=== PATIENT | female | born 1990 | race Caucasian/White ===

== ENCOUNTER 2021-07-21 03:40 | Inpatient (IN) | payer OTHER, SELFPAY ==
[2021-07-21] VITALS (36 sets, daily range): BP systolic 94–141; BP diastolic 57–93; PULSE 53–129; RESP 16–20; TEMP 36.7–37.2; O2SAT 99; BMI 33.1
--- NOTE | 2021-07-21 04:22 | LDADM ---
This patient, August, was admitted to Labor/Delivery/Recovery 105 on 07/21/21 at 03:40. Plans for labor, pain management and were discussed with patient. Patient/family oriented to hospital policies and general routines including ID bracelet, bed and alarms, visiting hours, pain management, procedures, bathroom and other care routines, personal items, smoking policy, room service/diet and guest tray routines, security routines, and visiting hours. Patient/Family are encouraged to report perceived risks to care and to ask questions if they do not understand what they are told or what they should do. See OBIX for further documentation.
[2021-07-21] MEDS: DEXTROSE 5%/LACTATED RINGERS 1,000 ML 125 ML IV CONT (04:28)
[2021-07-21 05:09] LABS: Basophils Percent Auto 0.2 % (0.2-1.2); Eosinophils Absolute Auto 0.1 K/mm3 (0-0.3); Eosinophils Percent Auto 0.5 % (0-4.4); Hematocrit 37.4 % (37.0-47.0); Hemoglobin 13.1 g/dL (12.0-15.0); Immature Granulocyte Absolute 0.08 K/mm3 (0.00-0.031); Immature Granulocyte Percent A 0.6 % (0-0.5); Lymphocytes Absolute Auto 3.37 K/mm3 (0.9-3.2); Lymphocytes Percent Auto 27.3 % (18.3-44.2); Mean Corpuscular Hemoglobin 34.7 pg (26-34); Mean Corpuscular Volume 98.9 fl (80-100); Mean Platelet Volume 12.5 fl (7.4-10.4); Monocytes Absolute Auto 0.8 K/mm3 (0.1-0.6); Monocytes Percent Auto 6.6 % (2.6-8.5); Neutrophils Percent Auto 64.8 % (45.5-73.1); Platelet Count Result 156 k/mm3 (150-375); Red Blood Count 3.78 M/mm3 (4.2-5.4); Red Cell Distribution Width 13.2 % (11.5-14.5); White Blood Count 12.3 K/mm3 (4.5-10.0)
--- NOTE | 2021-07-21 07:24 | PM.IMHP ---
H&P: HPI History of Present Illness Date/Time: 07/21/21 07:24 31-year-old 1 para 0 whose last menstrual was 10/06/2020, EDC is 07/15/2021, presents at 41 weeks gestation active labor. Her has been uncomplicated. She is negative for group B strep Chief Complaint: term in active labor Review of Systems Review of Systems: All systems reviewed & are unremarkable except as noted in HPI and below PMFSH Family History Family History Grandparent Pacemaker Diabetes mellitus Father Hypertension Mother Diabetes mellitus Sibling Diabetes mellitus Social History Social History Smoking status: Never smoker Substance use: never Spiritual care concerns: No Meds Home Medications and Allergies Allergies Allergy/AdvReac Type Severity Reaction Status Date / Time No Known Allergies Allergy Verified 06/28/21 13:58 Vital Signs Vital Signs - 24 hr 07/21/21 04:00 07/21/21 04:27 07/21/21 04:31 Temperature 98.7 F Pulse Rate 64 72 Respiratory Rate Blood Pressure 134/84 125/82 07/21/21 04:46 07/21/21 05:16 07/21/21 05:31 Temperature Pulse Rate 71 97 53 L Respiratory Rate Blood Pressure 125/73 112/77 127/81 07/21/21 05:46 07/21/21 06:01 07/21/21 06:16 Temperature 98.3 F Pulse Rate 65 53 L 55 L Respiratory Rate 20 Blood Pressure 126/90 136/91 H 124/80 07/21/21 06:33 Temperature Pulse Rate 78 Respiratory Rate Blood Pressure 116/73 Exam Const: General: no acute distress Eyes: General: appearance normal, both eyes and all related structures Neck: Neck: supple and no JVD Thyroid: thyroid normal Resp: Effort & Inspection: normal respiratory effort Auscultation: clear to auscultation bilaterally Cardio: Rate: regular rate Rhythm: regular rhythm GI: Inspection: non-distended GI Palp: Yes Soft to palpation, No Tenderness to palpation present (GI) and No Guarding due to palpation present (GI) Auscultation: normal bowel sounds : External Female Exam: normal external appearance Speculum Exam - Vagina: normal appearance of the vagina Speculum Exam - Cervix: normal appearance of the cervix ( cervix is 6 / 100%/ -1 AROM clear. FHTs now reassuring after sugar load) Skin: General skin exam: no rashes or lesions noted Extrem: General: normal to inspection and no edema Psych: Mental Status: mental status grossly normal Affect: normal affect H&P: Results Labs Labs: Short CBC 07/21/21 Range/Units 04:18 WBC 12.3 H (4.5-10.0) K/mm3 Hgb 13.1 (12.0-15.0) g/dL Hct 37.4 (37.0-47.0) % Plt Count 156 (150-375) k/mm3 Assessment and Plan Additional Plan impression: Term in active labor Plan: Spontaneous vaginal delivery is expected
[2021-07-21] MEDS: LACTATED RINGERS 1,000 ML 125 ML IV CONT (07:45)
[2021-07-21 09:28] LABS: Rapid Plasma Reagin Non-Reactive (NonReactive)
[2021-07-21] MEDS: OXYTOCIN 30 UNITS/NS 500 ML 30 UNITS/500 ML BAG 999 UNITS IVPB (13:40)
--- NOTE | 2021-07-21 13:43 | PM.OBPRVD ---
OB - Delivery Note Procedure Delivery date: 07/21/21 Induction method: None Delivery monitor: External FHT Route of delivery: Prior to decision for section, [facility] labor guidelines were considered and discussed with the patient and staff. Decision made to proceed with the section.: No Episiotomy description: None Laceration Description: None Specimen: No Quantitative Blood Loss (ml): 59 Anesthesia type: None Disposition: floor Baby Date of : 07/21/21 Time of : 13:36 Weeks of gestation at delivery: 40 gender: Female presentation: vertex position: Right Occiput Anterior Placenta delivery description: Spontaneous Cord Vessel Description: 3 Vessels, Nuchal Cord and Loose score one minute: 8 score five minutes: 9
[2021-07-21] MEDS: LIDOCAINE HCL 1% PF 30 ML VIAL (13:50)
[2021-07-21] MEDS: OXYTOCIN 30 UNITS/NS 500 ML 30 UNITS/500 ML BAG 125 UNITS IV CONT (14:20)
[2021-07-21] MEDS: BENZOCAINE 20% AER SPR (*SP) 56 GM CAN 1 SPRAY TOPICAL (16:04)
[2021-07-21] MEDS: WITCH HAZEL 40 PADS 1 PAD TOPICAL (16:04)
[2021-07-21] MEDS: IBUPROFEN 600 MG TABLET PO (19:18)
[2021-07-22] VITALS: BP 102/63; PULSE 78; RESP 16; TEMP 36.8; O2SAT 100
[2021-07-22 04:00] VITALS: BP 110/68; PULSE 76; RESP 16; TEMP 36.9; O2SAT 99
[2021-07-22 06:12] LABS: Hematocrit 32.5 % (37.0-47.0); Hemoglobin 11.4 g/dL (12.0-15.0)
[2021-07-22 07:15] VITALS: BP 105/73; PULSE 79; RESP 18; TEMP 36.8; O2SAT 98
--- NOTE | 2021-07-22 07:34 | PM.OBPNVD ---
OB - PN: Subj Subjective Date/time seen: 07/22/21 07:34 Patient comments: no complaints and pain well controlled baby status: doing well and nursing well OB - PN: Obj Data Labs CBC & Chem 7: 07/22/21 04:01 Labs: Laboratory Results - last 24 hr 07/21/21 07/21/21 07/22/21 04:18 11:41 04:01 Hgb 11.4 L Hct 32.5 L RPR Non-reactive Blood Type A Positive Antibody Screen Negative OB - PN A/P Plan day: 1 Plan: routine care Time Spent With Patient Time: Total time spent is greater than 50% in coordination of care (as documented) at patient's floor/unit and/or counseling patient: Time with patient: less than 15 minutes Review of Systems Review of Systems: All systems reviewed & are unremarkable except as noted in HPI and below Exam Const: General: no acute distress Eyes: General: appearance normal, both eyes and all related structures Neck: Neck: supple and no JVD Thyroid: thyroid normal Resp: Effort & Inspection: normal respiratory effort Auscultation: clear to auscultation bilaterally Cardio: Rate: regular rate Rhythm: regular rhythm GI: Inspection: non-distended GI Palp: Yes Soft to palpation, No Tenderness to palpation present (GI) and No Guarding due to palpation present (GI) Auscultation: normal bowel sounds : General: Yes bladder normal to palpation External Female Exam: normal external appearance Speculum Exam - Vagina: normal vaginal discharge and No vaginal bleeding Speculum Exam - Cervix: nontender Bimanual exam- vagina & uterus: bladder normal to palpation and No Cervical tenderness present OB/external & speculum: No vaginal bleeding Skin: General skin exam: no rashes or lesions noted Extrem: General: normal to inspection and no edema Psych: Mental Status: mental status grossly normal Affect: normal affect
[2021-07-22 08:00] VITALS: PULSE 79; RESP 18; O2SAT 98
[2021-07-22] MEDS: DOCUSATE SODIUM 100 MG CAPSULE PO (09:42)
[2021-07-22] MEDS: IBUPROFEN 600 MG TABLET PO (09:43)
[2021-07-22] MEDS: MULTIVIT/MIN/PREN/FOL AC/IRON TABLET 1 TAB PO (09:43)
[2021-07-22 12:29] VITALS: BP 101/59; PULSE 88; RESP 16; TEMP 37.2; O2SAT 98
[2021-07-22 19:25] VITALS: BP 106/86; PULSE 68; RESP 16; TEMP 37
--- NOTE | 2021-07-23 10:26 | PM.DS ---
DS: Admitting Diagnosis Discharge Date 07/22/21 Admitting Diagnosis Term in active labor DS: Discharge Diagnosis Discharge Diagnosis (1) Active labor at term: Status: Acute DS: Summary Hospital Course Hospital Course: Patient was admitted in active labor. She underwent spontaneous vaginal delivery which was unremarkable. She her course was unremarkable. She remained afebrile. She was voiding without difficulty passing gas eating a regular diet and general without complaints. The baby was transferred and therefore she asked to be transferred for home Time Spent with Patient Time attestation: Total time spent providing and/or coordinating discharge services: Exam Const: General: no acute distress Eyes: General: appearance normal, both eyes and all related structures Neck: Neck: supple and no JVD Thyroid: thyroid normal Resp: Effort & Inspection: normal respiratory effort Auscultation: clear to auscultation bilaterally Cardio: Rate: regular rate Rhythm: regular rhythm GI: Inspection: non-distended GI Palp: Yes Soft to palpation, No Tenderness to palpation present (GI) and No Guarding due to palpation present (GI) Auscultation: normal bowel sounds : General: Yes bladder normal to palpation External Female Exam: normal external appearance Speculum Exam - Vagina: normal vaginal discharge and No vaginal bleeding Speculum Exam - Cervix: nontender Bimanual exam- vagina & uterus: bladder normal to palpation and No Cervical tenderness present OB/external & speculum: No vaginal bleeding Skin: General skin exam: no rashes or lesions noted Extrem: General: normal to inspection and no edema Psych: Mental Status: mental status grossly normal Affect: normal affect Discharge Plan Discharge Attending physician on discharge: Pablo Pruitt Discharging Clinician: Pablo Pruitt Patient Disposition: Home, Self-Care Activity: may shower and pelvic rest Diet: heart healthy Discharge Instructions: Education: Mom and Baby Guide Given to: Mother Follow-Up: Call your delivering provider's office for an appointment to be seen in: 6 Weeks Mom and baby should come to the [facility] for the follow-up appointment. Appointment Date/Time: July 24, 2021 at 11:00 am What to expect at your follow-up visit: Blood Pressure Check Call [phone] if you are unable to keep your appointment time. BREAST CARE: * Wear a snug supportive bra. * For engorgement discomfort: Breast Feeding: * Apply warm moist washcloths * Express milk as needed to relieve engorgement * Wear loose clothing * For sore nipples: * Identify correct latch-on * Apply warm moist washcloths before and after nursing * Air dry nipples after nursing * May apply Lansinoh cream to nipples EPISIOTOMY/PERINEAL CARE: * Until bleeding stops, use your meron bottle after urinating * Change your pad frequently throughout the day * You may take sitz baths several times a day (fill your bathtub with warm water and soak for 20 minutes.) Do NOT bathe in the water * No tub baths until seen by your physician - You may shower ACTIVITY: * Rest as much as possible. * Do not exercise or lift anything heavier than your baby (such as laundry or other children.) * Avoid stairs or driving as much as possible. * Do not put anything into the vagina. No douching, tampons, or sexual activity until seen by physician. NOTIFY PHYSICIAN IF YOU HAVE ANY QUESTIONS OR IF ANY OF THE FOLLOWING SYMPTOMS OCCUR: * If your episiotomy or incision becomes red, swollen, or more painful than what you have experienced in the hospital. * If your vaginal bleeding becomes foul smelling. * If your vaginal bleeding becomes more heavy than a period or if your bleeding changes from pink to bright red. However, you may pass an occasional walnut-sized clot once or twice for the first week postpartu
== END 2021-07-22 23:36 | disposition home or self-care (01) | DRG 807 ==
LOC: ANHOB2 07-22 22:38 → ANHLDR 07-23 10:49 → ANHOB2 07-23 10:49
PROVIDERS: Admitting Provider Obstetrics & Gynecology; PCP Family Medicine; Visit Provider Obstetrics & Gynecology
DX: O69.81X0 Labor and delivery complicated by cord around neck, without compression, not applicable or unspecified (principal); Z37.0 Single live birth; Z3A.41 41 weeks gestation of pregnancy; O36.8330 Maternal care for abnormalities of the fetal heart rate or rhythm, third trimester, not applicable or unspecified; O70.0 First degree perineal laceration during delivery
CPT/HCPCS: 36415; 85014; 85018; 85025; 86592; 86850; 86900; 86901; A9270; J2590; J7120; J7121

== ENCOUNTER 2024-07-18 03:33 | Inpatient (IN) | payer OTHER, SELFPAY ==
[2024-07-18] VITALS (41 sets, daily range): BP systolic 79–130; BP diastolic 48–81; PULSE 75–99; RESP 16–20; TEMP 36.9–37.3; O2SAT 93–100; BMI 35.9
[2024-07-18 04:37] LABS: Basophils Percent Auto 0.2 % (0.2-1.2); Eosinophils Percent Auto 0.2 % (0-4.4); Hematocrit 35.9 % (37.0-47.0); Hemoglobin 12.5 g/dL (12.0-15.0); Immature Granulocyte Percent A 0.8 % (0-0.5); Lymphocytes Absolute Auto 2.67 K/mm3 (0.9-3.2); Mean Corpuscular HGB Conc 34.8 g/dl (32-36); Mean Corpuscular Hemoglobin 33.9 pg (26-34); Mean Corpuscular Volume 97.3 fl (80-100); Mean Platelet Volume 11.1 fl (7.4-10.4); Monocytes Absolute Auto 0.6 K/mm3 (0.1-0.6); Monocytes Percent Auto 5.2 % (2.6-8.5); Neutrophils Absolute Auto 8.7 K/mm3 (1.3-6.7); Neutrophils Percent Auto 71.6 % (45.5-73.1); Platelet Count Result 197 k/mm3 (150-375); Red Blood Count 3.69 M/mm3 (4.2-5.4); Red Cell Distribution Width 12.8 % (11.5-14.5); White Blood Count 12.1 K/mm3 (4.5-10.0)
[2024-07-18] MEDS: OXYTOCIN 10 UNITS/ML VIAL IM (04:49)
--- NOTE | 2024-07-18 04:52 | PM.IMHP ---
H&P: HPI History of Present Illness Date/Time: 07/18/24 04:52 Chief Complaint: Labor at term Narrative: 34-year-old female 2 para whose last menstrual was 10/05/2023, EDC is 07/09/2024, presents at 41 and 2 7th weeks gestation active labor. She negative for group B strep. Her was otherwise uncomplicated short of postdate . Review of Systems Review of Systems: All systems reviewed & are unremarkable except as noted in HPI and below PMFSH Family History Family History Grandparent Pacemaker Diabetes mellitus Father Hypertension Mother Diabetes mellitus Sibling Diabetes mellitus Social History Social History Smoking status: Never smoker Substance use: never Spiritual care concerns: No Meds Home Medications and Allergies Home Medications ?Medication ?Instructions ?Recorded ?Confirmed ?Type vit no.95-ferrous 1 tablet PO DAILY 07/01/24 07/01/24 History fumarate 28 mg-folic acid 800 mcg tablet () Allergies Allergy/AdvReac Type Severity Reaction Status Date / Time No Known Allergies Allergy Verified 07/01/24 13:09 Vital Signs Vital Signs - 24 hr 07/18/24 04:43 07/18/24 04:48 Pulse Oximetry 98 97 Exam Const: General: cooperative, healthy appearing and comfortable Nutritional Appearance: average body habitus Orientation/consciousness: oriented to person, oriented to place and oriented to time HENMT: Head: normal to inspection Resp: Effort & Inspection: normal respiratory effort Cardio: Rate: regular rate Rhythm: regular rhythm Heart sounds: S1 normal heart sound present and S2 normal heart sound present GI: Inspection: normal to inspection (Gravid soft uterus) : External Female Exam: normal external appearance Speculum Exam - Vagina: normal appearance of the vagina Speculum Exam - Cervix: normal appearance of the cervix (Cervix initially 6 quickly to the room. A round clear) H&P: Results Labs Labs: Short CBC 07/18/24 Range/Units 04:29 WBC 12.1 H (4.5-10.0) K/mm3 Hgb 12.5 (12.0-15.0) g/dL Hct 35.9 L (37.0-47.0) % Plt Count 197 (150-375) k/mm3 Assessment and Plan Assessment and plan (1) Active labor at term: Status: Acute Plan Imminent spontaneous vaginal delivery expected
--- NOTE | 2024-07-18 04:55 | PM.OBPRVD ---
OB - Vaginal Delivery Note Procedure Delivery date: 07/18/24 Induction method: None Delivery augmentation: Rupture of Membranes Delivery monitor: External FHT and External Uterine Route of delivery: Episiotomy description: None Laceration Description: None Specimen: No Quantitative Blood Loss (ml): 62 Anesthesia type: None Disposition: Floor Complications: No immediate complications Narrative: Patient was admitted in active labor at 41 and 2 7th weeks gestation she was actually scheduled for induction this a.m. she rapidly went from 6 to the complete artificial rupture membranes performed she pushed about 5 times delivered the head spontaneously in the SAI position. Nuchal cord checked noted be loose x1 rubor old occiput. Anterior posterior shoulder delivered spontaneously. Cord clamped x2 and cut patient placed in Trendelenburg. After inspecting the vagina no tears were noted. QBL was 62cc. All sponge, needle, instrument counts were correct. There were no immediate complications noted [place] Baby Date of : 07/18/24 Time of : 04:43 Gestational Age by Date: 41 gender: Male presentation: vertex position: Right Occiput Anterior Placenta delivery description: Spontaneous Cord Vessel Description: 3 Vessels, Nuchal Cord, Loose and Reduced score one minute: 8 score five minutes: 9
--- NOTE | 2024-07-18 04:57 | PM.DS ---
DS: Admitting Diagnosis Discharge Date 07/19/2024 Admitting Diagnosis Postdate DS: Discharge Diagnosis Discharge Diagnosis (1) Active labor at term: Status: Acute DS: Summary Hospital Course Reason for hospitalization: Patient was admitted in active labor early a.m. 07/18/2019 and underwent spontaneous vaginal delivery Hospital Course: Patient's hospital course unremarkable. She remained afebrile. She was up, voiding without difficulty, eating diet, ambulating, and generally without complaints. Time Spent with Patient Time attestation: Total time spent providing and/or coordinating discharge services: Exam Const: General: cooperative, healthy appearing and comfortable Nutritional Appearance: average body habitus Orientation/consciousness: oriented to person, oriented to place and oriented to time HENMT: Head: normal to inspection Resp: Effort & Inspection: normal respiratory effort Cardio: Rate: regular rate Rhythm: regular rhythm Heart sounds: S1 normal heart sound present and S2 normal heart sound present GI: Inspection: normal to inspection (Fundus firm below the umbilicus) DS: Data Data Completed and Pending Labs on day of discharge: Labs from last 24 hours 07/18/24 04:29 WBC 12.1 H RBC 3.69 L Hgb 12.5 Hct 35.9 L MCV 97.3 MCH 33.9 MCHC 34.8 RDW 12.8 Plt Count 197 MPV 11.1 H Immature Gran % (Auto) 0.8 H Neut % (Auto) 71.6 Lymph % (Auto) 22.0 [place] % (Auto) 5.2 Eos % (Auto) 0.2 Baso % (Auto) 0.2 Lymph # (Auto) 2.67 [place] # (Auto) 0.6 Eos # (Auto) 0.0 Baso # (Auto) 0.0 Abs Immat Gran (auto) 0.10 H Absolute Neuts (auto) 8.7 H Absolute Nucleated RBC 0.000 Nucleated RBC % 0.0 HIV 1&2 Ab/P24 Ag 4thGn Pending Discharge Plan Discharge Attending physician on discharge: Pablo Fairchild Discharging Clinician: Pablo Fairchild Patient Disposition: Home, Self-Care Activity: may shower, no straining and pelvic rest Diet: heart healthy Wound Care Instructions: follow printed instructions Patient Instructions: Antibiotic Form Patient Language: [place] Stand Alone Forms: General Discharge Information Follow-up/Referrals: Pablo Fairchild MD [Physician] - Discharge Medications: Continued PNV cmb#95-ferrous fumarate-FA [] 28 mg iron- 800 mcg tablet 1 tablet PO DAILY Date of admission: 07/18/24 03:33 Primary Care Provider: Letty,Dada Chambers Admitting Provider: Pablo Fairchild Attending physician on admission: Pablo Fairchild Condition: Stable
--- NOTE | 2024-07-18 05:05 | LDADM ---
This patient, Geni Antoine, was admitted to Labor/Delivery/Recovery 106 on 07/18/24 at 03:33. Plans for labor, pain management and were discussed with patient. Patient/family oriented to hospital policies and general routines including ID bracelet, bed and alarms, visiting hours, pain management, procedures, bathroom and other care routines, personal items, smoking policy, room service/diet and guest tray routines, infant security routines, and visiting hours. Patient/Family are encouraged to report perceived risks to care and to ask questions if they do not understand what they are told or what they should do. See OBIX for further documentation.
[2024-07-18 05:28] LABS: HIV 1/2 Ab P24 Ag Result Negative (Negative)
[2024-07-18] MEDS: OXYTOCIN 30 UNITS/NS 500 ML 30 UNITS/500 ML BAG 999 UNITS IV CONT (05:30)
[2024-07-18 05:59] LABS: Syphilis IgG/IgM Antibody Negative (Negative)
--- NOTE | 2024-07-18 07:27 | OBPPTRN ---
Patient transferred to post room #277 via wheelchair. Support person present. Oriented to unit, room, information board, rooming in, admission packet and security measures. Patient verbalizes understanding.
[2024-07-18] MEDS: DOCUSATE SODIUM 100 MG CAPSULE PO (09:35)
[2024-07-18] MEDS: MULTIVIT/MIN/PREN/FOL AC/IRON TABLET 1 TAB PO (09:35)
--- NOTE | 2024-07-18 10:15 | PC.NURSE ---
1015- Primary RN requested assistance for patient. She had mom place baby skin to skin. Baby was still skin to skin and very sleepy. We tried to elicit feeding cues but didn't give any effort. Mom needs a lot of help with positioning. She has short shanked meaty nipples. Her first baby wasn't able to latch so she pumped and bottle fed. Encouraged continued skin to skin and we will try again in 30 minutes. Reported to primary RN. 1050- Returned to patient room to see if baby had awakened to feed. Mom was trying to latch him in a laid back position. Baby was trying to latch but was arching his back. We repositioned to a cross cradle hold and he eagerly tried to latch. He appears to have a recessed chin and the breast slips out the bottom of his mouth a soon as he stops sucking. We switched to the right breast in cross cradle and after several attempts were able to get a good latch. latched to the [right] breast in [cross cradle] position. Infant [was] able to maintain an appropriate latch. Mother [declines] nipple pain/discomfort [throughout feeding]. Encouraged mother to keep infant awake and nursing at the breast for as long as he desires. Mother taught to listen for infant swallowing during feedings and to recognize a deep latch. Reviewed using the blue feeding sheet to record time and duration of feeding. Mother voiced understanding of the education shared, to call for assistance if the infant does not latch or if there is discomfort with . name/number on communication board. Reported to the Primary RN.?
--- NOTE | 2024-07-18 15:53 | PC.NURSE ---
On 07/18/24, the [facility] nursing manager, Natalie, provided care and completed [employer] documentation on this patient. I have reviewed the student's documentation and agree with the findings.
--- NOTE | 2024-07-18 18:56 | PC.NURSE ---
1520 Mother called out for assistance, she had baby skin to skin and baby was showing no feeding cues. Advised mother to keep skin to skin and RN would check back with her in 20-30 minutes. 1550 in room, mother latched baby to her left breast in cross cradle and baby would latch and took a few sucks for a few minutes. Reported to Primary RN. 1625 RN in room, mother used her manual hand pump per her choice and gave baby drops of colostrum that she had collected. Reported to Primary RN. 1730 Mother had baby skin to skin and he was showing feeding cues, she was going to see if baby would latch. She had sent her to go and get her double electric pump to use instead of her manual breast pump. Discussed possible supplementation of formula if needed, per mother with her last baby she did pump and bottle feed but really wanted to breast feed this time if baby would. Mother voiced understanding of information and will call if there is a request for assistance. Reported to the Primary RN.
[2024-07-18] MEDS: ACETAMINOPHEN 325 MG TABLET 650 MG PO (20:43)
[2024-07-19 00:15] VITALS: BP 98/69; PULSE 83; RESP 20; TEMP 36.5; O2SAT 100
[2024-07-19] MEDS: IBUPROFEN 600 MG TABLET PO (01:07)
[2024-07-19 05:37] LABS: Hematocrit 34.2 % (37.0-47.0); Hemoglobin 11.5 g/dL (12.0-15.0)
[2024-07-19 07:10] VITALS: BP 108/65; PULSE 90; RESP 16; TEMP 36.9; O2SAT 97
--- NOTE | 2024-07-19 07:47 | PM.OBPNVD ---
OB - PN: Subj Subjective Date/time seen: 07/19/24 07:47 Patient comments: no complaints, pain well controlled and tolerating diet Guy baby status: doing well OB - PN: Obj Data Labs 07/19/24 04:55 Labs: Laboratory Results - last 24 hr 07/19/24 04:55 Hgb 11.5 L Hct 34.2 L OB - PN A/P Time Spent With Patient Time: Total time spent is greater than 50% in coordination of care (as documented) at patient's floor/unit and/or counseling patient: Review of Systems Review of Systems: All systems reviewed & are unremarkable except as noted in HPI and below
[2024-07-19] MEDS: MULTIVIT/MIN/PREN/FOL AC/IRON TABLET 1 TAB PO (08:42)
[2024-07-19] MEDS: DOCUSATE SODIUM 100 MG CAPSULE PO (08:42)
[2024-07-19] MEDS: ACETAMINOPHEN 325 MG TABLET 650 MG PO (08:47)
--- NOTE | 2024-07-19 09:05 | PC.NURSE ---
Consulted with mother concerning needs and she shared her ability to independently latch infant optimally without pain, baby is currently latched optimally on her right breast in the football position. Mother is feeding appropriately for growth of and understands stimulating infant to eat if needed. Infant has had appropriate feedings in the last 24 hours meets the outcomes for weight, output, blood sugar and jaundice at this time. Reinforced understanding of milk production, transition of milk, signs of adequate intake, transition of stool, prevention/relief of engorgement, plugged ducts, mastitis, responsive watching for feeding cues, the different methods of stimulating infant to breastfeed 1-3 hours after the start of the last feeding, community resources, and when to call a provider using the resource of the feeding sheet along with the mom and baby guide. Mother voiced understanding of the information shared, is confident to continue effectively her infant at home, when to call for assistance, denies any additional assistance or education at this time. Reported to the Primary RN.
[2024-07-20 09:43] VITALS: BP 166/73; PULSE 95; RESP 20; TEMP 36.4; O2SAT 100
== END 2024-07-19 15:50 | disposition home or self-care (01) | DRG 807 ==
LOC: ANHLDR 05:00 → ANHOB2 07:30
PROVIDERS: Admitting Provider Obstetrics & Gynecology; PCP Family Medicine; Visit Provider Obstetrics & Gynecology
DX: O62.3 Precipitate labor (principal); Z37.0 Single live birth; Z3A.41 41 weeks gestation of pregnancy; O69.81X0 Labor and delivery complicated by cord around neck, without compression, not applicable or unspecified
CPT/HCPCS: 36415; 85014; 85018; 85025; 86593; 86703; 86850; 86900; 86901; A9270; G0432; J2590